=== PATIENT | female | born 1935 ===

== ENCOUNTER 2020-10-21 05:50 | Day surgery (SDC) | payer OTHER ==
[~2020-10-21 05:50] MED LIST: ACID REDUCER20 M1 PO; ARICEPT10 MG PO; ATORVASTATIN CA20 MG PO; CARTIA XT300 MG PO; CLONAZEPAM0.5 MG PO; COZAAR100 MG PO; LEVOTHYROXINE25 MCG PO
== END 2020-10-21 12:00 | disposition home or self-care (01) ==
LOC: CIR.AMB 05:50
PROVIDERS: ATTEND Colon & Rectal Surgery
DX: D12.8 Benign neoplasm of rectum (principal); K64.8 Other hemorrhoids; Z20.822 Contact with and (suspected) exposure to COVID-19

== ENCOUNTER 2021-07-05 09:46 | Day surgery (SDC) | payer OTHER ==
[~2021-07-05 09:46] MED LIST changes: +IBU600 MG PO; +SINGULAIR10 MG PO; +SYNTHROID50 MCG PO
== END 2021-07-05 14:25 | disposition home or self-care (01) ==
LOC: CIR.AMB 09:46
PROVIDERS: ATTEND Obstetrics & Gynecology Gynecology
DX: N81.10 Cystocele, unspecified (principal); I10 Essential (primary) hypertension; I34.1 Nonrheumatic mitral (valve) prolapse; E03.9 Hypothyroidism, unspecified; M19.90 Unspecified osteoarthritis, unspecified site; Z20.822 Contact with and (suspected) exposure to COVID-19

== ENCOUNTER 2023-04-13 08:41 | Outpatient (CLI) | payer OTHER | END 2023-04-13 08:48 | disposition home or self-care (01) | LOC: RX STUDY 08:41 | PROVIDERS: ATTEND Colon & Rectal Surgery | DX: N82.8 Other female genital tract fistulae (principal) ==